=== PATIENT | male | born 1960 | race Caucasian/White ===

== ENCOUNTER → 2016-06-28 | Outpatient (CLI) | payer OTHER | LOC: CAT 00:52 | DX: M47.26 Other spondylosis with radiculopathy, lumbar region (principal); M54.5 Low back pain ==

== ENCOUNTER → 2017-11-04 | Outpatient (CLI) | payer OTHER | LOC: CAT 06:27 | DX: M47.896 Other spondylosis, lumbar region (principal); M51.27 Other intervertebral disc displacement, lumbosacral region; M46.07 Spinal enthesopathy, lumbosacral region; I70.0 Atherosclerosis of aorta; N28.1 Cyst of kidney, acquired; M48.061 Spinal stenosis, lumbar region without neurogenic claudication ==

== ENCOUNTER → 2018-10-04 | Outpatient (CLI) | payer OTHER | LOC: CAT 13:42 | DX: M47.22 Other spondylosis with radiculopathy, cervical region (principal); M47.27 Other spondylosis with radiculopathy, lumbosacral region; M51.16 Intervertebral disc disorders with radiculopathy, lumbar region; M48.02 Spinal stenosis, cervical region; M48.061 Spinal stenosis, lumbar region without neurogenic claudication; M51.27 Other intervertebral disc displacement, lumbosacral region ==